=== PATIENT | male | born 1940 | race Caucasian/White ===

== ENCOUNTER 2018-01-05 14:25 | Outpatient (CLI) | payer OTHER ==
[~2018-01-05 14:25] MED LIST: ALTACE10 MG; DILTIAZEM ER180 M2; GLIMEPIRIDE2 MG; HCTZ/RESERPINE/1 TAB; HYTRIN10 MG; METFORMIN HCL1000 MG; MICARDIS40 MG; OMEPRAZOLE20 MG; SIMVASTATIN20 MG; TENORMIN50 MG; URETRON D/S TAB1 TAB; ZYLOPRIM100 MG
== END 2018-01-05 14:31 | disposition home or self-care (01) ==
LOC: RAD 14:25
DX: M12.89 Other specific arthropathies, not elsewhere classified, multiple sites (principal); M19.011 Primary osteoarthritis, right shoulder

== ENCOUNTER 2019-03-09 09:59 | Outpatient (CLI) | payer OTHER | END 2019-03-09 10:16 | disposition home or self-care (01) | LOC: SONOGRAMA 09:59 | DX: E11.65 Type 2 diabetes mellitus with hyperglycemia (principal); I10 Essential (primary) hypertension; L84 Corns and callosities; E03.8 Other specified hypothyroidism; M79.641 Pain in right hand; E04.2 Nontoxic multinodular goiter ==

== ENCOUNTER → 2019-09-08 | Outpatient (CLI) | payer OTHER | END | disposition home or self-care (01) | LOC: RAD 15:32 | DX: M12.89 Other specific arthropathies, not elsewhere classified, multiple sites (principal); M46.47 Discitis, unspecified, lumbosacral region ==

== ENCOUNTER 2019-10-30 23:52 | Emergency (ER) | payer OTHER ==
[~2019-10-30] VITALS: Ht 182.9 cm; Wt 90.7 kg
[2019-10-31] MEDS ORDERED: JANUMET 50-1,01 EACH (00:09)
[2019-10-31] MEDS ORDERED: AVAPRO75 MG (00:12)
[2019-10-31] MEDS ORDERED: ALLEGRA ALLERGY60 MG (00:13)
[2019-10-31] MEDS ORDERED: TAMS0.4C (00:14)
[2019-10-31] MEDS ORDERED: SYNTHROID88 MCG (00:14)
[2019-10-31] MEDS ORDERED: FOLIC ACID0.8 M1 (00:14)
[2019-10-31] MEDS ORDERED: PEPCID40 MG PO (03:33)
[2019-10-31] MEDS ORDERED: ZYNCOF 20-400120 ML PO (03:33)
== END 2019-10-31 03:54 | disposition home or self-care (01) ==
LOC: ER 23:52
DX: T78.1XXA Other adverse food reactions, not elsewhere classified, initial encounter (principal); R06.02 Shortness of breath; R05 Cough; X58.XXXA Exposure to other specified factors, initial encounter

== ENCOUNTER 2019-11-21 13:23 | Outpatient (CLI) | payer OTHER ==
[~2019-11-21 13:23] MED LIST changes: +ALLEGRA ALLERGY60 MG; +AVAPRO75 MG; +FOLIC ACID0.8 M1; +JANUMET 50-1,01 EACH; +PEPCID40 MG PO; +SYNTHROID88 MCG; +TAMS0.4C; +ZYNCOF 20-400120 ML PO
== END 2019-11-21 13:31 | disposition home or self-care (01) ==
LOC: RAD 13:23
DX: M12.811 Other specific arthropathies, not elsewhere classified, right shoulder (principal); M12.812 Other specific arthropathies, not elsewhere classified, left shoulder

== ENCOUNTER 2021-01-27 01:03 | Emergency (ER) | payer OTHER ==
[~2021-01-27] VITALS: Ht 182.9 cm; Wt 92.1 kg
[2021-01-27] MEDS ORDERED: HYDRALAZINE HCL50 MG (01:30)
[2021-01-27] MEDS ORDERED: MORGIDOX100 MG (01:30)
[2021-01-27] MEDS ORDERED: AVAPRO300 MG (01:31)
[2021-01-27] MEDS ORDERED: ATORVASTATIN CA20 MG (01:31)
[2021-01-27] MEDS ORDERED: DIALYVITE 800-1 EACH (01:32)
[2021-01-27] MEDS ORDERED: TAMS0.4C (01:32)
== END 2021-01-27 07:42 | disposition home or self-care (01) ==
LOC: ER 01:03
DX: R42 Dizziness and giddiness (principal); R53.83 Other fatigue; R51.9 Headache, unspecified; R00.2 Palpitations; R11.0 Nausea; I10 Essential (primary) hypertension; T46.5X5A Adverse effect of other antihypertensive drugs, initial encounter; Y92.89 Other specified places as the place of occurrence of the external cause

== ENCOUNTER 2021-02-06 09:59 | Outpatient (CLI) | payer OTHER ==
[~2021-02-06 09:59] MED LIST changes: +ATORVASTATIN CA20 MG; +AVAPRO300 MG; +DIALYVITE 800-1 EACH; +HYDRALAZINE HCL50 MG; +MORGIDOX100 MG
== END 2021-02-06 10:01 | disposition home or self-care (01) ==
LOC: NUCLEAR 09:59
PROVIDERS: ATTEND Internal Medicine
DX: I73.9 Peripheral vascular disease, unspecified (principal); I65.29 Occlusion and stenosis of unspecified carotid artery; I87.2 Venous insufficiency (chronic) (peripheral); I11.9 Hypertensive heart disease without heart failure; R06.02 Shortness of breath; I35.1 Nonrheumatic aortic (valve) insufficiency; E03.9 Hypothyroidism, unspecified; E78.2 Mixed hyperlipidemia; E11.8 Type 2 diabetes mellitus with unspecified complications

== ENCOUNTER 2021-02-11 09:05 | Outpatient (CLI) | payer OTHER | END 2021-02-13 07:54 | disposition home or self-care (01) | LOC: NUCLEAR 09:05 | PROVIDERS: ATTEND Internal Medicine | DX: I11.9 Hypertensive heart disease without heart failure (principal); I87.2 Venous insufficiency (chronic) (peripheral); I73.9 Peripheral vascular disease, unspecified; I65.29 Occlusion and stenosis of unspecified carotid artery; I35.1 Nonrheumatic aortic (valve) insufficiency; R06.02 Shortness of breath ==

== ENCOUNTER → 2021-02-15 | Outpatient (CLI) | payer OTHER | END | disposition home or self-care (01) | LOC: MAMO-SONO 10:45 → SONOGRAMA 10:50 | PROVIDERS: ATTEND Internal Medicine Endocrinology, Diabetes & Metabolism | DX: E11.65 Type 2 diabetes mellitus with hyperglycemia (principal); I10 Essential (primary) hypertension; L84 Corns and callosities; E03.8 Other specified hypothyroidism; G57.90 Unspecified mononeuropathy of unspecified lower limb ==

== ENCOUNTER 2021-04-05 13:56 | Outpatient (CLI) | payer OTHER | END 2021-04-05 15:00 | disposition home or self-care (01) | LOC: SONOGRAMA 13:56 | PROVIDERS: ATTEND Urology | DX: Q61.02 Congenital multiple renal cysts (principal); R97.20 Elevated prostate specific antigen [PSA]; R31.1 Benign essential microscopic hematuria ==

== ENCOUNTER 2021-12-03 10:26 | Outpatient (CLI) | payer OTHER | END 2021-12-03 10:34 | disposition home or self-care (01) | LOC: SONOGRAMA 10:26 | PROVIDERS: ATTEND Urology | DX: R31.1 Benign essential microscopic hematuria (principal); R97.20 Elevated prostate specific antigen [PSA] ==

== ENCOUNTER 2022-10-29 14:57 | Outpatient (CLI) | payer OTHER | END 2022-10-29 15:05 | disposition home or self-care (01) | LOC: SONOGRAMA 14:57 | PROVIDERS: ATTEND Urology | DX: R31.1 Benign essential microscopic hematuria (principal); R97.20 Elevated prostate specific antigen [PSA] ==

== ENCOUNTER 2022-12-10 07:46 | Outpatient (CLI) | payer OTHER | END 2022-12-10 07:53 | disposition home or self-care (01) | LOC: RAD 07:46 | DX: R76.11 Nonspecific reaction to tuberculin skin test without active tuberculosis (principal); R74.01 Elevation of levels of liver transaminase levels; E03.8 Other specified hypothyroidism; E11.21 Type 2 diabetes mellitus with diabetic nephropathy; E11.65 Type 2 diabetes mellitus with hyperglycemia; I10 Essential (primary) hypertension ==

== ENCOUNTER 2023-04-27 13:29 | Outpatient (CLI) | payer OTHER | END 2023-04-27 13:38 | disposition home or self-care (01) | LOC: SONOGRAMA 13:29 | PROVIDERS: ATTEND Urology | DX: R31.1 Benign essential microscopic hematuria (principal) ==

== ENCOUNTER 2023-07-15 14:18 | Outpatient (CLI) | payer OTHER | END 2023-07-15 14:25 | disposition home or self-care (01) | LOC: RAD 14:18 | PROVIDERS: ATTEND Internal Medicine Rheumatology | DX: M19.041 Primary osteoarthritis, right hand (principal); M19.042 Primary osteoarthritis, left hand ==

== ENCOUNTER 2023-10-08 14:32 | Outpatient (CLI) | payer OTHER | END 2023-10-08 14:39 | disposition home or self-care (01) | LOC: SONOGRAMA 14:32 | PROVIDERS: ATTEND Specialist/Technologist, Other Nephrology | DX: R10.9 Unspecified abdominal pain (principal); N18.30 Chronic kidney disease, stage 3 unspecified; R31.9 Hematuria, unspecified ==

== ENCOUNTER 2024-03-18 15:05 | Outpatient (CLI) | payer OTHER | END 2024-03-18 15:13 | disposition home or self-care (01) | LOC: RAD 15:05 | DX: M12.9 Arthropathy, unspecified (principal) ==

== ENCOUNTER 2024-10-14 14:49 | Outpatient (CLI) | payer OTHER | END 2024-10-14 14:59 | disposition home or self-care (01) | LOC: RAD 14:49 | PROVIDERS: ATTEND Internal Medicine Cardiovascular Disease | DX: M46.47 Discitis, unspecified, lumbosacral region (principal) ==

== ENCOUNTER 2024-10-18 09:28 | Outpatient (CLI) | payer OTHER | END 2024-10-18 09:39 | disposition home or self-care (01) | LOC: SONOGRAMA 09:28 | PROVIDERS: ATTEND Internal Medicine Endocrinology, Diabetes & Metabolism | DX: E03.9 Hypothyroidism, unspecified (principal); E78.5 Hyperlipidemia, unspecified; I10 Essential (primary) hypertension; N18.9 Chronic kidney disease, unspecified; E11.65 Type 2 diabetes mellitus with hyperglycemia; E11.21 Type 2 diabetes mellitus with diabetic nephropathy; E03.8 Other specified hypothyroidism; L84 Corns and callosities; N40.0 Benign prostatic hyperplasia without lower urinary tract symptoms; R97.20 Elevated prostate specific antigen [PSA]; R33.9 Retention of urine, unspecified; N20.0 Calculus of kidney ==

== ENCOUNTER 2024-12-26 10:20 | Outpatient (CLI) | payer OTHER | END 2024-12-26 10:21 | disposition home or self-care (01) | LOC: NUCLEAR 10:20 | PROVIDERS: ATTEND Internal Medicine Endocrinology, Diabetes & Metabolism | DX: E11.21 Type 2 diabetes mellitus with diabetic nephropathy (principal); E11.65 Type 2 diabetes mellitus with hyperglycemia; E03.8 Other specified hypothyroidism; I10 Essential (primary) hypertension; L84 Corns and callosities; M81.0 Age-related osteoporosis without current pathological fracture ==

== ENCOUNTER 2025-02-06 08:54 | Outpatient (CLI) | payer OTHER | END 2025-02-07 08:57 | disposition home or self-care (01) | LOC: RAD 08:54 | PROVIDERS: ATTEND Internal Medicine Cardiovascular Disease | DX: M19.90 Unspecified osteoarthritis, unspecified site (principal) ==

== ENCOUNTER 2025-02-16 13:00 | Outpatient (CLI) | payer OTHER | END 2025-02-16 13:03 | disposition home or self-care (01) | LOC: RAD 13:00 | PROVIDERS: ATTEND Orthopaedic Surgery | DX: S92.354A Nondisplaced fracture of fifth metatarsal bone, right foot, initial encounter for closed fracture (principal) ==

== ENCOUNTER 2025-07-20 10:39 | Outpatient (CLI) | payer OTHER | END 2025-07-20 10:56 | disposition home or self-care (01) | LOC: SONOGRAMA 10:39 | DX: C73 Malignant neoplasm of thyroid gland (principal) ==

== ENCOUNTER → 2025-08-03 09:22 | Outpatient (CLI) | payer OTHER | END | disposition home or self-care (01) | LOC: NUCLEAR 09:22 | PROVIDERS: ATTEND Specialist/Technologist, Other Nephrology | DX: N13.71 Vesicoureteral-reflux without reflux nephropathy (principal); N13.9 Obstructive and reflux uropathy, unspecified; N18.30 Chronic kidney disease, stage 3 unspecified | CPT/HCPCS: 78709; A9539 ==

== ENCOUNTER 2025-08-11 14:42 | Outpatient (CLI) | payer OTHER | END 2025-08-11 14:47 | disposition home or self-care (01) | LOC: RAD 14:42 | PROVIDERS: ATTEND Ophthalmology | DX: R07.89 Other chest pain (principal) ==